=== PATIENT | female | born 1980 | race Caucasian/White ===

== ENCOUNTER 2018-11-11 19:49 | Emergency (ER) | payer MEDICARE ==
--- NOTE | 2018-11-11 20:37 | EDM.PDOC ---
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, Home Treatments, NSAIDS Middle Sternum Pain Score (Numeric/FACES): 5 - Related Data Allergies Allergy/AdvReac Type Severity Reaction Status Date / Time doxycycline Allergy unsure Verified 11/11/18 20:13 Home Meds: Home Meds PARoxetine HCl [Paxil] 20 mg PO DAILY 09/20/13 [History] Amoxicillin/Potassium Clav [Augmentin 875-125 Tablet] 1 each PO BID 10 Days #19 tablet 11/11/18 [Rx] Social & Family History - Tobacco Use Smoking Status *Q: Never Smoker Second Hand Smoke Exposure: Yes - Recreational Drug Use Recreational Drug Use: No - Living Situation & Occupation Living situation: Reports: with Significant Other, Other Occupation: Employed ED ROS GENERAL - Review of Systems Review Of Systems: ROS reveals no pertinent complaints other than HPI. ED EXAM, GENERAL - Physical Exam Exam: See Below Exam Limited By: No Limitations General Appearance: Alert, WD/WN, No Apparent Distress Ears: Normal External Exam, Normal Canal, Hearing Grossly Normal, Normal TMs Ear Exam: Bilateral Ear: Auricle Normal, Canal Normal, TM normal Nose: Normal Inspection, Normal Mucosa, No Blood Throat/Mouth: Normal Inspection, Normal Lips, Normal Teeth, Normal Gums, Normal Oropharynx, Normal Voice, No Airway Compromise Head: Atraumatic, Normocephalic Neck: Normal Inspection, Supple, Non-Tender, Full Range of Motion Respiratory/Chest: Other (Midsternal biopsy site tender to palpation losing pus) Cardiovascular: Normal Peripheral Pulses, Regular Rate, Rhythm, No Edema, No Gallop, No JVD, No Murmur, No Rub GI/Abdominal: Normal Bowel Sounds, Soft, Non-Tender, No Organomegaly, No Distention, No Abnormal Bruit, No Mass Back Exam: Normal Inspection, Full Range of Motion, NT Extremities: Normal Inspection, Normal Range of Motion, Non-Tender, Normal Capillary Refill, No Pedal Edema Neurological: Alert, Oriented, CN II-XII Intact, Normal Cognition, Normal Gait, Normal Reflexes, No Motor/Sensory Deficits Psychiatric: Normal Affect, Normal Mood Skin Exam: Warm, Dry, Erythema (Biopsy site chest) ED GENERAL MEDICAL PROCEDURES - Additional/Other Procedure(s) Other (Free Text) Procedure(s): Patient was prepped and draped using sterile gloves large amount of pus was removed from incision site patient felt much better at this time we'll start on Augmentin 875 twice a day for 10 days patient is to follow-up with primary Course - Vital Signs Last Recorded V/S: Last Vital Signs Temp 99 F 11/11/18 19:52 Pulse 100 11/11/18 19:52 Resp 18 11/11/18 19:52 BP 141/104 H 11/11/18 19:52 Pulse Ox 98 11/11/18 19:52 Departure - Departure Time of Disposition: 20:37 Disposition: Home, Self-Care 01 Condition: Fair Clinical Impression: Chest wall abscess - Discharge Information *PRESCRIPTION DRUG MONITORING PROGRAM REVIEWED*: No *COPY OF PRESCRIPTION DRUG MONITORING REPORT IN PATIENT BAL: No Care Plan Goals: Chest abscess was drained at this time patient is to see or follow-up with primary of choice may possibly need an I&D started on Augmentin 875 for tendinosis
[2018-11-11] MEDS ORDERED: Amoxicillin/Clavulanate K 875-125 MG Tab PO ONE (20:39)
[2018-11-11 23:43] VITALS: BP 149/99
== END 2018-11-11 21:05 | disposition home or self-care (01) ==
LOC: SUPCPDRO 19:49 → LL.ED 19:49
DX: L02.213 Cutaneous abscess of chest wall (principal); Z77.22 Contact with and (suspected) exposure to environmental tobacco smoke (acute) (chronic)
CPT/HCPCS: 87070; 87205; 99283; A9270

== ENCOUNTER 2019-01-29 14:55 | Emergency (ER) | payer MEDICARE, SELFPAY ==
[2019-01-29 15:13] VITALS: BP 151/95; PULSE 71
--- NOTE | 2019-01-29 15:37 | EDM.PDOC ---
ED HPI GENERAL MEDICAL PROBLEM - General Chief Complaint: General Stated Complaint: Dog Bite Time Seen by Provider: 01/29/19 15:10 Source of Information: Reports: Patient History Limitations: Reports: No Limitations - History of Present Illness INITIAL COMMENTS - FREE TEXT/NARRATIVE: Patient states that she went to the [facility] with a neighbor to buy some cucumbers and not to do your and nobody open there was a dog on the [employer] she went over and and call to see if he was here she came out and the dog left the enclosed area with the door was open and the bowel clamp down on her calf patient came in for evaluation Onset: Today Duration: Minutes:, Constant Location: Reports: Lower Extremity, Left Quality: Reports: Ache, Pressure Severity: Mild Improves with: Reports: None Worsens with: Reports: Movement Context: Reports: Trauma (The) Associated Symptoms: Reports: No Other Symptoms - Related Data Allergies Allergy/AdvReac Type Severity Reaction Status Date / Time doxycycline Allergy unsure Verified 11/16/18 09:23 Home Meds: Home Meds Sertraline [Zoloft] 100 mg PO DAILY 01/29/19 [History] Social & Family History - Living Situation & Occupation Living situation: Reports: with Significant Other, Other Occupation: Employed ED ROS GENERAL - Review of Systems Review Of Systems: See Below Constitutional: Reports: No Symptoms HEENT: Reports: No Symptoms Respiratory: Reports: No Symptoms Cardiovascular: Reports: No Symptoms Endocrine: Reports: No Symptoms GI/Abdominal: Reports: No Symptoms : Reports: No Symptoms Musculoskeletal: Reports: No Symptoms Skin: Reports: No Symptoms Neurological: Reports: No Symptoms Psychiatric: Reports: No Symptoms Hematologic/Lymphatic: Reports: No Symptoms Immunologic: Reports: No Symptoms ED EXAM, GENERAL - Physical Exam Exam: See Below Exam Limited By: No Limitations General Appearance: Alert, WD/WN, No Apparent Distress Ears: Normal External Exam, Normal Canal, Hearing Grossly Normal, Normal TMs Ear Exam: Bilateral Ear: Auricle Normal, Canal Normal, TM normal Nose: Normal Inspection, Normal Mucosa, No Blood Throat/Mouth: Normal Inspection, Normal Lips, Normal Teeth, Normal Gums, Normal Oropharynx, Normal Voice, No Airway Compromise Head: Atraumatic, Normocephalic Neck: Normal Inspection, Supple, Non-Tender, Full Range of Motion Respiratory/Chest: No Respiratory Distress, Lungs Clear, Normal Breath Sounds, No Accessory Muscle Use, Chest Non-Tender Cardiovascular: Normal Peripheral Pulses, Regular Rate, Rhythm, No Edema, No Gallop, No JVD, No Murmur, No Rub GI/Abdominal: Normal Bowel Sounds, Soft, Non-Tender, No Organomegaly, No Distention, No Abnormal Bruit, No Mass (Female) Exam: Normal External Exam, Normal Speculum Exam, Normal Bimanual Exam Rectal (Female) Exam: Normal Exam, Normal Rectal Tone Back Exam: Normal Inspection, Full Range of Motion, NT Extremities: Normal Inspection, Other (Ecchymosis over left lower calf area of dog bite no open skin some swelling) Neurological: Alert, Oriented, CN II-XII Intact, Normal Cognition, Normal Gait, Normal Reflexes, No Motor/Sensory Deficits Psychiatric: Normal Affect, Normal Mood Skin Exam: Warm, Dry, Intact, Normal Color, No Rash Lymphatic: No Adenopathy Course - Vital Signs Last Recorded V/S: Last Vital Signs Temp 98.3 F 01/29/19 14:55 Pulse 71 01/29/19 14:55 Resp 16 01/29/19 14:55 BP 151/95 H 01/29/19 14:55 Pulse Ox 100 01/29/19 14:55 - Orders/Labs/Meds Orders: Active Orders 24 hr Category Date Time Status Ready for Discharge [RC] PER UNIT ROUTINE Care 01/29/19 15:37 Active Departure - Departure Time of Disposition: 15:34 Disposition: Home, Self-Care 01 Clinical Impression: Dog bite of calf - Discharge Information *PRESCRIPTION DRUG MONITORING PROGRAM REVIEWED*: No *COPY OF PRESCRIPTION DRUG MONITORING REPORT IN PATIENT BAL: No Instructions: Animal Bite, Adult, [id number] Referrals: PCP,Unknown [Primary Care Provider] - Forms: ED Department Discharge Care Plan Goals: Follow-up with primary care provider, patient is instructed to place don in quarantine patient refuses to call the police department at this time we do not know the status of the dog although there is no broken skin I do not know if there is any micro-perforations at this time I recommended to document be in quarantine for the next 10 days. Patient will talk to Jaz bustillos to figure dog is vaccination status patient may take Tylenol or Motrin for pain - My Orders Last 24 Hours: My Active Orders 01/29/19 15:37 Ready for Discharge [RC] PER UNIT ROUTINE - Assessment/Plan Last 24 Hours: My Active Orders 01/29/19 15:37 Ready for Discharge [RC] PER UNIT ROUTINE
== END 2019-01-29 16:05 | disposition home or self-care (01) ==
LOC: LL.ED 14:55
DX: S81.852A Open bite, left lower leg, initial encounter (principal); Z88.1 Allergy status to other antibiotic agents; Z79.899 Other long term (current) drug therapy; W54.0XXA Bitten by dog, initial encounter
CPT/HCPCS: 99282; 99283

== ENCOUNTER 2019-04-12 11:28 | Emergency (ER) | payer MEDICARE, OTHER ==
[2019-04-12 11:36] VITALS: BP 163/94; PULSE 74
--- NOTE | 2019-04-12 11:41 | EDM.PDOC ---
ED HPI GENERAL MEDICAL PROBLEM - General Chief Complaint: Skin Complaint Stated Complaint: rash Time Seen by Provider: 04/12/19 11:36 Source of Information: Reports: Patient History Limitations: Reports: No Limitations - History of Present Illness INITIAL COMMENTS - FREE TEXT/NARRATIVE: Patient is a 38-year-old who was seen with with a rash in the groin for about a month patient states it itches Onset: Gradual Duration: Week(s):, Getting Worse Quality: Reports: Ache, Other (Chief) Severity: Mild Improves with: Reports: None Worsens with: Reports: None Associated Symptoms: Reports: No Other Symptoms - Related Data Allergies Allergy/AdvReac Type Severity Reaction Status Date / Time doxycycline Allergy unsure Verified 04/12/19 11:30 Home Meds: Home Meds Sertraline [Zoloft] 100 mg PO DAILY 01/29/19 [History] Ketoconazole [Nizoral 2% Crm] 1 applic TOP BID 14 Days #14 tube 04/12/19 [Rx] Social & Family History - Living Situation & Occupation Living situation: Reports: with Significant Other, Other Occupation: Employed ED ROS GENERAL - Review of Systems Review Of Systems: See Below Constitutional: Reports: No Symptoms HEENT: Reports: No Symptoms Respiratory: Reports: No Symptoms Cardiovascular: Reports: No Symptoms Endocrine: Reports: No Symptoms GI/Abdominal: Reports: No Symptoms : Reports: No Symptoms Musculoskeletal: Reports: No Symptoms Skin: Reports: No Symptoms Neurological: Reports: No Symptoms Psychiatric: Reports: No Symptoms Hematologic/Lymphatic: Reports: No Symptoms Immunologic: Reports: No Symptoms ED EXAM, SKIN/RASH Exam: See Below Exam Limited By: No Limitations General Appearance: Alert, WD/WN, No Apparent Distress Ears: Normal External Exam, Normal Canal, Hearing Grossly Normal, Normal TMs Nose: Normal Inspection, Normal Mucosa, No Blood Throat/Mouth: Normal Inspection, Normal Lips, Normal Teeth, Normal Gums, Normal Oropharynx, Normal Voice, No Airway Compromise Head: Atraumatic, Normocephalic Neck: Normal Inspection, Supple, Non-Tender, Full Range of Motion Respiratory/Chest: No Respiratory Distress, Lungs Clear, Normal Breath Sounds, No Accessory Muscle Use, Chest Non-Tender Cardiovascular: Normal Peripheral Pulses, Regular Rate, Rhythm, No Edema, No Gallop, No JVD, No Murmur, No Rub GI/Abdominal: Normal Bowel Sounds, Soft, Non-Tender, No Organomegaly, No Distention, No Abnormal Bruit, No Mass (Female) Exam: Other Back Exam: Normal Inspection, Full Range of Motion, NT Extremities: Normal Inspection, Normal Range of Motion, Non-Tender, No Pedal Edema, Normal Capillary Refill Neurological: Alert, Oriented, CN II-XII Intact, Normal Cognition, Normal Gait, Normal Reflexes, No Motor/Sensory Deficits Psychiatric: Normal Affect, Normal Mood Skin: Rash Lymphatic: No Adenopathy Course - Vital Signs Last Recorded V/S: Last Vital Signs Temp 97.6 F 04/12/19 11:35 Pulse 74 04/12/19 11:35 Resp 20 04/12/19 11:35 BP 163/94 H 04/12/19 11:35 Pulse Ox 98 04/12/19 11:35 Departure - Departure Time of Disposition: 11:39 Disposition: Home, Self-Care 01 Condition: Good Clinical Impression: Tinea inguinalis - Discharge Information *PRESCRIPTION DRUG MONITORING PROGRAM REVIEWED*: No *COPY OF PRESCRIPTION DRUG MONITORING REPORT IN PATIENT BAL: No Prescriptions: Ketoconazole [Nizoral 2% Crm] 1 applic TOP BID 14 Days #14 tube Referrals: PCP,Unknown [Primary Care Provider] - Care Plan Goals: Apply 5 times a day for the next 14 days follow-up with primary if not better
== END 2019-04-12 11:55 | disposition home or self-care (01) ==
LOC: LL.ED 11:28 → SUPCPDRO 11:28 → LL.ED 11:55
DX: B35.8 Other dermatophytoses (principal); Z88.1 Allergy status to other antibiotic agents
CPT/HCPCS: 99282

== ENCOUNTER 2020-01-10 17:01 | Emergency (ER) | payer MEDICARE, MEDICAID ==
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
[2020-01-10 17:17] VITALS: BP 150/89; PULSE 89
== END 2020-01-10 17:30 | disposition home or self-care (01) ==
LOC: LL.ED 17:01
DX: L55.0 Sunburn of first degree (principal); F41.8 Other specified anxiety disorders; J45.909 Unspecified asthma, uncomplicated; K27.9 Peptic ulcer, site unspecified, unspecified as acute or chronic, without hemorrhage or perforation; I10 Essential (primary) hypertension; E66.9 Obesity, unspecified; Z68.32 Body mass index [BMI] 32.0-32.9, adult; Z88.1 Allergy status to other antibiotic agents; Z79.899 Other long term (current) drug therapy
CPT/HCPCS: 99282

== ENCOUNTER 2020-05-13 00:02 | Emergency (ER) | payer MEDICARE, MEDICAID ==
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
[2020-05-13 00:29] VITALS: BP 198/84; PULSE 84
[2020-05-13 00:55] LABS: PTT,PARTIAL THROMBOPLSTIN TIME 25.1 SEC (24.5-32.8)
[2020-05-13 00:57] LABS: CHLORIDE,CL 100 mmol/L (98-107); SODIUM,NA 137 mmol/L (136-145)
== END 2020-05-13 01:37 | disposition home or self-care (01) ==
LOC: LL.ED 00:02
DX: J45.909 Unspecified asthma, uncomplicated (principal); I10 Essential (primary) hypertension; F41.8 Other specified anxiety disorders; L72.3 Sebaceous cyst; R09.1 Pleurisy; Z88.1 Allergy status to other antibiotic agents; Z79.899 Other long term (current) drug therapy; E66.9 Obesity, unspecified; Z68.29 Body mass index [BMI] 29.0-29.9, adult
CPT/HCPCS: 36415; 71045; 80053; 83605; 85025; 85379; 85610; 85730; 87081; 87430; 87804; 99283-25; U0002

== ENCOUNTER 2020-08-04 23:23 | Emergency (ER) | payer MEDICARE, MEDICAID ==
[2020-08-04 23:43] VITALS: PULSE 85
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
[2020-08-04 23:56] VITALS: BP 127/90
== END 2020-08-05 00:20 | disposition home or self-care (01) ==
LOC: LL.ED 23:23
DX: K27.9 Peptic ulcer, site unspecified, unspecified as acute or chronic, without hemorrhage or perforation (principal); J45.909 Unspecified asthma, uncomplicated; F41.8 Other specified anxiety disorders; I10 Essential (primary) hypertension; J44.9 Chronic obstructive pulmonary disease, unspecified; E66.9 Obesity, unspecified; Z68.29 Body mass index [BMI] 29.0-29.9, adult; Z88.1 Allergy status to other antibiotic agents; Z79.899 Other long term (current) drug therapy
CPT/HCPCS: 99283; 99284

== ENCOUNTER 2021-05-16 15:44 | Emergency (ER) | payer MEDICARE, MEDICAID ==
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
[2021-05-16] MEDS ORDERED: traMADol 50 MG Tab PO ONE (16:55)
[2021-05-16] MEDS ORDERED: Ketorolac 10 MG Tab PO ONE (16:55)
[2021-05-16 19:29] VITALS: BP 118/52; PULSE 64
== END 2021-05-16 17:05 | disposition home or self-care (01) ==
LOC: LL.ED 15:44
DX: S39.92XA Unspecified injury of lower back, initial encounter (principal); I10 Essential (primary) hypertension; J44.9 Chronic obstructive pulmonary disease, unspecified; E66.9 Obesity, unspecified; Z88.1 Allergy status to other antibiotic agents; Z79.899 Other long term (current) drug therapy; W10.9XXA Fall (on) (from) unspecified stairs and steps, initial encounter
CPT/HCPCS: 72220; 99283; 99284; A9270-GY

== ENCOUNTER 2021-07-23 20:41 | Emergency (ER) | payer OTHER, MEDICARE, MEDICAID ==
[2021-07-23] MEDS ORDERED: Acetaminophen 500 MG Tab PO ONE (21:39)
[2021-07-23 23:10] VITALS: BP 155/96; PULSE 95
== END 2021-07-23 23:15 | disposition home or self-care (01) ==
LOC: LL.ED 20:41
DX: S13.4XXA Sprain of ligaments of cervical spine, initial encounter (principal); E78.00 Pure hypercholesterolemia, unspecified; I10 Essential (primary) hypertension; J44.9 Chronic obstructive pulmonary disease, unspecified; E66.9 Obesity, unspecified; Z68.30 Body mass index [BMI] 30.0-30.9, adult; Z88.1 Allergy status to other antibiotic agents; V49.49XA Driver injured in collision with other motor vehicles in traffic accident, initial encounter; Y92.410 Unspecified street and highway as the place of occurrence of the external cause
CPT/HCPCS: 72040; 73030-LT; 99284

== ENCOUNTER 2021-11-08 15:48 | Emergency (ER) | payer MEDICARE, MEDICAID ==
[2021-11-08] MEDS ORDERED: Nitroglycerin 0.4 MG Tab.SL SL ONE (15:56)
[2021-11-08] MEDS ORDERED: Aspirin 81 MG Tab.Chew PO ONE (15:56)
[2021-11-08 16:39] LABS: BARBITURATE SCREEN,URINE NEGATIVE (NEGATIVE); BENZODIAZEPINES SCREEN,URINE NEGATIVE (NEGATIVE); EDDP,URINE SCREEN NEGATIVE (NEGATIVE); TCA SCREEN,URINE NEGATIVE (NEGATIVE); THC SCREEN,URINE 50 NG/ML NEGATIVE (NEGATIVE)
[2021-11-08 16:40] LABS: BUPRENORPHINE SCREEN,URINE NEGATIVE (NEGATIVE)
[2021-11-08 17:22] LABS: ANION GAP 12.4 meq/L (7-15); CHLORIDE,CL 103 mmol/L (98-107); SODIUM,NA 138 mmol/L (136-145)
[2021-11-08 18:52] LABS: PTT,PARTIAL THROMBOPLSTIN TIME 25.7 SEC (23.6-29.8)
[2021-11-08 19:45] VITALS: BP 123/63; PULSE 91
== END 2021-11-08 18:45 | disposition home or self-care (01) ==
LOC: LL.ED 15:48
DX: R07.89 Other chest pain (principal); F32.A Depression, unspecified; F41.9 Anxiety disorder, unspecified; J44.9 Chronic obstructive pulmonary disease, unspecified; K21.9 Gastro-esophageal reflux disease without esophagitis; E66.9 Obesity, unspecified; Z68.30 Body mass index [BMI] 30.0-30.9, adult; Z88.1 Allergy status to other antibiotic agents
CPT/HCPCS: 36415; 71045; 80053; 80305; 80307; 81003; 82550; 83605; 83735; 83880; 84484; 85025; 85379; 85610; 85730; 93005; 93010; 99284; 99285; A9270

== ENCOUNTER 2022-03-12 15:29 | Emergency (ER) | payer MEDICARE, MEDICAID ==
[2022-03-12 15:42] VITALS: BP 139/109; PULSE 91
[2022-03-12 16:39] LABS: RESPIRATORY SYNCYTIAL VIR NAA NEGATIVE (NEGATIVE)
[2022-03-12 16:42] LABS: CORONAVIRUS COVID-19 NAA POSITIVE (NEGATIVE)
== END 2022-03-12 17:00 | disposition home or self-care (01) ==
LOC: LL.ED 15:29
DX: U07.1 COVID-19 (principal); J44.9 Chronic obstructive pulmonary disease, unspecified; I10 Essential (primary) hypertension; Z88.1 Allergy status to other antibiotic agents; Z79.899 Other long term (current) drug therapy; Z79.82 Long term (current) use of aspirin; Z20.822 Contact with and (suspected) exposure to COVID-19
CPT/HCPCS: 0241U; 99283; 99284

== ENCOUNTER 2022-09-30 07:15 | Emergency (ER) | payer MEDICARE, MEDICAID ==
[2022-09-30] MEDS ORDERED: Sodium Chloride 0.9% 10 ML Syringe FLUSH PRN ×2 (08:08→09:32)
[2022-09-30] MEDS ORDERED: Lactated Ringers 1,000 ML IV SCH (08:15)
[2022-09-30] MEDS ORDERED: Morphine 2 MG/ML SYRINGE IVPUSH ONE (08:17)
[2022-09-30 08:42] LABS: ANION GAP 13.6 meq/L (7-15)
[2022-09-30] MEDS ORDERED: Iopamidol 612 MG/ML 100 ML Bottle ONE (08:47)
[2022-09-30] MEDS ORDERED: Iopamidol 612 MG/ML 100 ML Bottle IVPUSH STA (08:50)
[2022-09-30] MEDS ORDERED: cefTRIAXone 2 GM in Sodium Chloride 0.9% 100 ML IV ONE (09:13)
[2022-09-30] MEDS ORDERED: metroNIDAZOLE/Normal Saline 500 MG in Premix Bag 1 BAG IV SCH (09:15)
[2022-09-30 13:29] VITALS: BP 144/99; PULSE 99
== END 2022-09-30 12:05 | disposition home or self-care (01) ==
LOC: LL.ED 07:15
DX: K57.32 Diverticulitis of large intestine without perforation or abscess without bleeding (principal); D72.829 Elevated white blood cell count, unspecified; E78.00 Pure hypercholesterolemia, unspecified; I10 Essential (primary) hypertension; I25.2 Old myocardial infarction; J44.9 Chronic obstructive pulmonary disease, unspecified; K21.9 Gastro-esophageal reflux disease without esophagitis; E66.9 Obesity, unspecified; Z88.1 Allergy status to other antibiotic agents; Z79.82 Long term (current) use of aspirin; Z68.27 Body mass index [BMI] 27.0-27.9, adult
CPT/HCPCS: 36415; 74177; 80053; 81003; 83605; 83690; 83735; 85025; 86140; 87040; 96361; 96365; 96367; 96375; 99284; 99284-25; J0696; J2270; J3490; J7120; Q9967